=== PATIENT | female | born 1980 | race Caucasian/White ===

== ENCOUNTER 2020-06-28 09:40 | Emergency (ER) | payer MEDICAID ==
[~2020-06-28] VITALS: Ht 154.9 cm; Wt 97.1 kg
[2020-06-28 09:49] VITALS: Ht 154.9 cm; Wt 97.1 kg
[2020-06-28 10:56] VITALS: BP 118/66
== END 2020-06-28 10:56 | disposition home or self-care (01) ==
LOC: ED 09:40
DX: M54.5 Low back pain (principal)